=== PATIENT | female | born 1950 ===

== ENCOUNTER 2023-09-21 12:46 | Outpatient (AMB) | payer MEDICARE, MEDICAID, SELFPAY ==
--- NOTE | 2023-09-21 12:54 | A.SPINEOV_ITS ---
Intake Intake Visit Reasons: second opinion Intake Note: Ms. Kidd is here today to get a Second opinion. 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 She has a 73-year-old female who reports a history of cervical spinal fracture after falling off a horse 50 years ago. She notes that about 5-6 years ago she started to notice some diffuse symptoms of weakness in her arms and legs, progressing to balance issues and over the last year so she has had more of a an rapid progression of weakness in her whole body, fatigue, weakness in her hands, numbness of her hands, spontaneous tremors as well as severe right arm pain. She was seen at [facility] by who recommended surgery. The patient was given what sounds like the option of an anterior cervical fusion. The patient wanted a 2nd opinion to confirm what was said at the original office visit. 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 That was done by , who she no longer follows up with. She just follows up with her PCP office for routine cardiac screening apparently. She also has a history of cholecystectomy, depression, hypothyroidism, high cholesterol, asthma, sleep apnea, blepharoplasty, cataract surgery. She denies any history of bleeding disorders, kidney problems, major abdominal surgery, urinary dysfunction. Social hx: She has not smoke, drink or use any recreational drugs Medications: Advair, levothyroxine, sertraline, valsartan, atorvastatin, Gleevec, , Ventolin, omeprazole, loratadine, vitamin-D, vitamin-B, magnesium as well as a number of different herbal supplements Allergies: Penicillin gives her rash Physical exam: She is awake alert oriented no acute distress, she is slightly unsteady gait with standing and tandem gait walking. The patient has weakness of both of her hands, worse on the right. She also has weakness in her biceps bilaterally. Triceps strength is full. She has some pain related weakness with her deltoids. She has a mild iliopsoas weakness bilaterally as well. Distal lower extremity strength is full. She is diffusely hyperreflexic with Mary Lou sign bilaterally and sustained clonus in her left triceps and into her left foot. 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 There is about 2/3 of a disc space left here. Adjacent to that just underneath it to C4-5 level there is what looks like a slight spondylolisthesis with severe spinal cord compression secondary to disc bulging as well as posterior ligamentous hypertrophy. At C5-6 there is also degenerative disc disease with bilateral neural foraminal stenosis. Impression: 73-year-old female presents with history of remote cervical spinal fracture 50 years ago at what is likely the C4 level that we are seeing on the MRI which appears to be auto fused to the C3 vertebral body. It looks like she is developed adjacent segment disease at C4-5 with severe stenosis at this level with floridly myelopathic physical exam findings as outlined above. She also has complaints of right arm pain going down into her hand with numbness of her index finger and thumb. I suspect this may be coming from the C5-6 foramen and the C6 nerve root. I am going to review this case with Dr. Gupta. But I believe he would agree with me the patient would be a good candidate for surgery. Most likely this would be an anterior cervical diskectomy and fusion at C4-5 and possibly also C5-6 to address the arm pain. We did discuss risks benefits of surgery at the time of this office visit. We had a discussion about the fact that doing surgery on patients with such severe myelopathy, the ultimate goal is to halt the progression of the myelopathy and not necessarily reverse the patient back to full function. We also discussed possible vocal hoarseness, dysphagia, neck pain etc.. We also discussed recovery from surgery as well. I am going to send her for flexion-extension x-rays to evaluate if there is any hypermobility at that C4-5 segment. We also discussed that there is some infolding of the ligament at C4-5 and that if she has a suboptimal recovery this may also need to be decompressed as well. If she proceed with surgery we would like to have cardiac clearance, and we would need more information on whether she needs to stop her Gleevec prior to surgery. Thank you for allowing us to care for your patient. The total time spent with this visit with this patient was 65 minutes reviewing history, physical exam, cervical spine imaging review, and implementation of treatment plan or further diagnostic testing Cosme Gupta MD,PhD [facility] Orders: Orders XR cervical spine 4V Today G95.9 - Disease of spinal cord, unspecified Coding Level of Care Code New Pt Level 5 (72089) Diagnoses Cervical myelopathy G95.9
== END 2023-09-21 14:05 | disposition home or self-care (01) ==
PROVIDERS: PCP Family Medicine; Visit Provider Physician Assistant
DX: G95.9 Disease of spinal cord, unspecified (principal)
CPT/HCPCS: 99205

== ENCOUNTER 2023-09-21 12:46 | Outpatient (REF) | payer MEDICARE, MEDICAID, SELFPAY ==
--- NOTE | ~2023-09-21 | XR_ITS ---
EXAMINATION: XR CERVICAL SPINE CLINICAL INFORMATION: Disease of spinal cord, unspecified. COMPARISON: None available. TECHNIQUE: AP neutral lateral, flexion and extension views of the cervical spine. FINDINGS: The bones are diffusely demineralized. Advanced multilevel degenerative changes in the cervical spine with loss of disc space height most notable at C4-C5, C5-C6 and C6-C7. Visualization of C7 is limited due to overlying soft tissues. Multiple radiopaque devices overlie the ears. Mild anterolisthesis of C3 on C4 and C4 on C5. XR/XR cervical spine 4V IMPRESSION: Advanced multilevel degenerative disc disease most notable at C4-C7.
== END 2023-09-21 12:47 | disposition home or self-care (01) ==
LOC: HO.HOSX 12:46
PROVIDERS: PCP Family Medicine; Visit Provider Physician Assistant
DX: G95.9 Disease of spinal cord, unspecified (principal)
CPT/HCPCS: 72050; 99202

== ENCOUNTER 2023-10-22 13:12 | Outpatient (AMB) | payer MEDICARE, MEDICAID, SELFPAY ==
--- NOTE | 2023-10-22 13:39 | HO.SPINEOV ---
Intake Visit Reasons: discuss sx Intake Note: Ms. Kidd is here today to Discuss Surgery Residence Director Required: No Allergies No Known Allergies Allergy (Verified 10/22/23 13:50) Assessment & Plan Assessment & Plan (1) Cervical myelopathy: Code(s): G95.9 - Disease of spinal cord, unspecified Category: Medical Plan Mrs Kidd came back in the office in follow-up. Please see my last office note for specifics of her problem. She has myelopathy in the plan will be for C4-5, C5-6 anterior cervical diskectomy and fusion with a plate. She came back in have a preoperative discussion about risks, benefits etc. and recovery. We again discussed at length the anterior approach, surgery, recovery etc.. I told her before we can proceed with surgery I would like to have cardiac clearance done by her PCP. Also, she has to come off herGleevec which is a medication I am not all that familiar with, so I asked her to touch base with her oncologist to see how long she would need to be off this before surgery and how it may affect her issue with the eosinophilic leukemia. We will need to have those issues addressed before surgery. Because she has myelopathy I will put her on the schedule, and I would like to have her come back and see Dr. Gupta the week before surgery just to review everything again in finalize. She wanted to take her MRI disc with her before she left, but I told her to bring it back with her when she sees Dr. Gupta. Pt was given risk and benefits of surgery including but not limited to infection, hematoma , nerve injury,durotomy, weakness,bowel/bladder injury, persistent pain, vocal hoarseness as well as the option to continue with conservative treatment and patient wishes to proceed with surgery. Pt is aware they should stop their motrin, aspirin 7 days prior to surgery. All questions were answered to the best of our ability. If there is anything about this patients medical history that we have overlooked or concerns you have about us proceeding with surgery we would appreciate any input you can offer. Total amount of time spent in this visit was 20 minutes in discussion of symptoms, cervical MRI and x-ray imaging results and subsequent plan of care Cosme Gupta MD,PhD [facility] Coding Level of Care Code Est Pt Level 3 (57180) Diagnoses Cervical myelopathy G95.9
== END 2023-10-22 14:56 | disposition home or self-care (01) ==
PROVIDERS: PCP Family Medicine; Visit Provider Physician Assistant
DX: G95.9 Disease of spinal cord, unspecified (principal)
CPT/HCPCS: 99213

== ENCOUNTER → 2023-10-22 13:12 | Outpatient (BNVA) | payer MEDICARE, MEDICAID, SELFPAY | PROVIDERS: PCP Family Medicine; Visit Provider Physician Assistant | DX: G95.9 Disease of spinal cord, unspecified (principal) | CPT/HCPCS: 99212 ==

== ENCOUNTER 2024-07-20 10:10 | Outpatient (AMB) | payer MEDICARE, MEDICAID, SELFPAY ==
--- NOTE | 2024-07-20 10:11 | MHC.OFFVIS ---
Vital Signs 07/20/24 10:13 Height 5 ft 2 in Weight 216 lb BMI 39.5 BP 124/78 Blood Pressure Location Rt brachial Position Sitting Intake Visit Reasons: ENP: Tremors Intake Note: Patient presents for tremors Allergies No Known Allergies Allergy (Verified 07/20/24 10:14) Medication List - Last Reconciled 07/20/24 by Maria Antonia Demarco MD albuterol sulfate 90 mcg/actuation inhalation aspirin 81 mg PO DAILY atorvastatin 80 mg PO DAILY budesonide-formoterol 160-4.5 mcg/actuation (Symbicort) 1 inh inhalation BID fluticasone propion-salmeterol 500-50 mcg/dose (Advair Diskus) 1 inh inhalation BID imatinib mg PO levothyroxine 75 mcg PO DAILY sertraline 100 mg PO ONCE valsartan 80 mg PO DAILY HPI Comments Details: 74y/o female comes here for evaluation of tremors. She was diagnosed with familial tremors many years ago and it worsened when she was on high doses of sertraline- 250mg qd . The dose was decreased in the past year and feels the tremor shave lessened. she was also trialed on abilify for 3 months but could not tolerate it.The tremors are in yuniel hands and Right leg, some head tremors.the tremors are at rest , posture and action.she is not sure about exposure to ripsperdal, haldol,zyprexa geodon.Tremors are worse when she is trying to write or any activities that needs fine motor coordination.she works at the [employer] .she denies family h/o tremors she has h/o cervical spondylosis seen at [facility] ([place], [place]) and scheduled for surgery.C spine X ray shows multilevel deg changes. she also has Obstructive sleep apnea diagnosed in 2009 and is on CPAP- f/u at [facility].she has.trouble with mask [facility] Medical History (Updated 07/20/24 @ 10:56 by Maria Antonia Demarco MD) TENA on CPAP Coarse tremors Leukemia, chronic Sleep related hypoxia Viral enteritis Obesity TENA (obstructive sleep apnea) Migraine NATHALY (acute kidney injury) Hypothyroidism HTN (hypertension) Hyperlipidemia Fibromyalgia Diverticulosis Depression CAD (coronary artery disease) Asthma STEMI (ST elevation myocardial infarction) GERD (gastroesophageal reflux disease) Surgical History Hx of cholecystectomy Social History Alcohol intake: current Physical Exam Vital Signs: Last Vital Signs BP 124/78 07/20/24 10:13 BMI result Body Mass Index 39.5 Const General: cooperative and anxious Nutritional Appearance: obese Orientation/consciousness: patient oriented x3 Eyes Pupils: Equal, round and reactive pupils present Neuro Other: Neck - restricted range of motion Mild head tremors Yuniel upper extremity - mild rest, postural and rest tremors Right Lower extremity - tremors , mild postural gait- slow, antalgic, mild stoop. No cogwheel rigidity No perioral movements anxious Mallampatti grade 4 General: patient oriented x3, tone normal, moves all extremities and no focal motor deficits Cranial nerves: Yes Facial sensation intact/muscles of mastication intact, Yes Equal, round and reactive pupils present, Yes Bilaterally intact EOM present, Yes Nystagmus not present, Yes Normal facial strength present, Yes Midline tongue present, Yes Symmetric palate elevation present and Yes Ability to bilaterally elevate shoulders present Cognition (Neuro): normal cognition Motor exam (neuro): 5/5 motor strength present throughout and Normal motor muscle tone present throughout Deep tendon reflexes (DTR's): Right triceps reflex intensity grade: 3+, Left triceps reflex intensity grade: 3+, Rt Biceps (C5, C6): 4+, Left biceps reflex intensity grade: 4+, Right brachioradialis reflex intensity grade: 3+, Left brachioradialis reflex intensity grade: 3+, Right patellar reflex intensity grade: 4+ and Left patellar reflex intensity grade: 4+ Coordination: [id number] test normal Assessment & Plan Assessment & Plan (1) Coarse tremors: Comment: exaggerated physiologic tremors, medictaion induced etc Code(s): G25.2 - Other specified forms of tremor Category: Medical (2) Cervical myelopathy: Code(s): G95.9 - Disease of spinal cord, unspecified Category: Medical (3) TENA on CPAP: Code(s): G47.33 - Obstructive sleep apnea (adult) (pediatric) Category: Medical Plan The tremors are likely exaggerated physiological tremors worsened by anxiety and medications. No evidence of Parkinsons on todays visit . I will follow her up clinically F/u with Neurospine for cervical myelopathy F/u [facility] sleep for sleep apnea Coding Level of Care Code New Pt Level 4 (55736) Diagnoses Coarse tremors G25.2 Cervical myelopathy G95.9 TENA on CPAP G47.33
[2024-07-20 10:13] VITALS: BP 124/78; BMI 39.5
== END 2024-07-20 10:58 | disposition home or self-care (01) ==
PROVIDERS: PCP Family Medicine; Visit Provider Psychiatry & Neurology Neurology
DX: G25.2 Other specified forms of tremor (principal); G95.9 Disease of spinal cord, unspecified; G47.33 Obstructive sleep apnea (adult) (pediatric)
CPT/HCPCS: 99204

== ENCOUNTER → 2024-07-20 10:10 | Outpatient (BNVA) | payer MEDICARE, MEDICAID, SELFPAY | PROVIDERS: PCP Family Medicine; Visit Provider Psychiatry & Neurology Neurology | DX: G25.2 Other specified forms of tremor (principal); G47.33 Obstructive sleep apnea (adult) (pediatric); G95.9 Disease of spinal cord, unspecified | CPT/HCPCS: 99202 ==